=== PATIENT | female | born 1975 | race Caucasian/White ===

== ENCOUNTER 2017-01-20 12:22 | Emergency (ER) | payer OTHER ==
[~2017-01-20] VITALS: Ht 160 cm; Wt 91.2 kg
[2017-01-20 12:24] VITALS: BP 136/89
== END 2017-01-20 14:17 | disposition home or self-care (01) ==
LOC: ED 12:22
DX: S83.412A Sprain of medial collateral ligament of left knee, initial encounter (principal); W22.8XXA Striking against or struck by other objects, initial encounter; Y93.01 Activity, walking, marching and hiking; Y92.89 Other specified places as the place of occurrence of the external cause; Y99.8 Other external cause status

== ENCOUNTER 2018-08-12 16:58 | Emergency (ER) | payer MEDICAID ==
[~2018-08-12] VITALS: Ht 160 cm; Wt 95.3 kg
[2018-08-12 17:17] VITALS: Ht 160 cm; Wt 95.3 kg
[2018-08-12 18:04] LABS: UA SPECIFIC GRAVITY <=1.005 (1.005-1.035); microscopic required? YES; urine erythrocyte 3+ (NEGATIVE)
[2018-08-12 18:05] LABS: PLATELET COUNT 361 x10^3mcL (130-400); RED CELL DISTRIBUTION WIDTH 13.8 % (11.5-14.5)
[2018-08-12 18:18] LABS: CALCIUM 8.8 mg/dL (8.5-10.1); CARBON DIOXIDE 24.5 mmol/L (21-32); CREATININE SERUM 1.1 mg/dL (0.6-1.0); POTASSIUM SERUM 3.7 mmol/L (3.5-5.1)
[2018-08-12 18:22] LABS: ALBUMIN 3.3 g/dL (3.4-5.0); BILIRUBIN TOTAL 0.2 mg/dL (0.20-1.00); TOTAL PROTEIN, SERUM 7.3 g/dL (6.4-8.2)
[2018-08-12 19:10] LABS: BAND NEUTROPHIL 11 % (0-10); BASOPHIL 0 % (0-2); MONOCYTE 6 % (0-7); SEGMENTED NEUTROPHILS 67 % (37-75)
[2018-08-12 19:11] LABS: PLATELET MORPHOLOGY PLATELETS NORMAL; rbc morphology (normal/abnorm) NORMAL (NORMAL)
[2018-08-12 19:38] VITALS: BP 126/81
== END 2018-08-12 19:38 | disposition home or self-care (01) ==
LOC: ED 16:58
PROVIDERS: Emergency Medicine
DX: N39.0 Urinary tract infection, site not specified (principal); D72.829 Elevated white blood cell count, unspecified; R31.9 Hematuria, unspecified
CPT/HCPCS: J0696; J1885; J7030